=== PATIENT | female | born 1955 | race African-American/Black ===

== ENCOUNTER 2021-01-26 12:03 | Emergency (ER) | payer OTHER ==
[~2021-01-26] VITALS: Ht 162.6 cm; Wt 62.6 kg
[2021-01-26 12:41] LABS: HEMATOCRIT 41.5 % (37.0-47.0); WBC 4.7 thou/uL (4.0-11.0)
[2021-01-26 12:43] LABS: HEMOGLOBIN 13.6 gm/dL (12.0-15.0); MCH 28.8 pg (26.0-34.0); MCHC 32.7 g/dL (28.0-37.0); RBC 4.72 mil/uL (4.20-5.00); RDW 13.6 % (10.5-14.5)
[2021-01-26 12:47] LABS: ANION GAP 8 mmol/L (7-16); BUN 8 mg/dL (7-18); CALCIUM 9.4 mg/dL (8.5-10.1); CHLORIDE 105 mmol/L (98-107); CO2 27 mmol/L (21-32); GLUCOSE 95 mg/dL (74-106); POTASSIUM 3.6 mmol/L (3.5-5.1); SODIUM 140 mmol/L (136-145)
[2021-01-26 12:57] LABS: ALBUMIN 4.3 g/dL (3.4-5.0); SGOT 21 U/L (15-37); SGPT 31 U/L (30-65); TOTAL BILIRUBIN 0.7 mg/dL (0.2-1.0); TOTAL PROTEIN 7.5 g/dL (6.4-8.2); TROPONIN-I <0.06 ng/mL (<0.06)
[2021-01-26] MEDS ORDERED: VERAPAMIL HCL180 M2 PO (13:15)
[2021-01-26 13:26] VITALS: BP 133/60
[2021-01-26 13:34] LABS: ABSOLUTE NEUTROPHILS 2.5 thou/uL (1.4-8.2)
[2021-01-26 13:40] LABS: PLATELET COUNT 158 thou/uL (150-400)
--- NOTE | 2021-01-27 13:13 | EKG ---
[address] [address] ELECTROCARDIOGRAM REPORT Name: DENNEY,HEMALATHA R [id number] Admission: 01/26/21 Attend Phys: Discharge: 01/26/21 Date of : 59 Report #: [id number] [facility] ED Test Date: 2021-01-26 Test Time: 12:41:22 Pat Name: HEMALATHA DNENEY Department: Room: Gender: F Clam Treader: AUG[birth year] : 1955 Requested By: Chetan Bustamante Order Number: [id number] MD: Yahir Bhardwaj Measurements Intervals [place] Rate: 60 P: 56 W[place]: 117 QRS: 3 QRSD: 85 T: 46 QT: 402 QTc: 402 Interpretive Statements Sinus rhythm Borderline short [place] interval Compared to ECG 09/09/1995 13:49:00 ST (T wave) deviation now present Sinus arrhythmia no longer present Electronically Signed On 01-27-2021 13:12:54 SQL REPORT WRITER by Yahir Bhardwaj [email or web address] <ELECTRONICALLY SIGNED> By: Yahir Bhardwaj MD 01/27/21 1312 1241 1241 Yahir Bhardwaj MD /MARY GRACE
== END 2021-01-26 13:20 | disposition home or self-care (01) ==
LOC: ER 12:03
PROVIDERS: Emergency Medicine
DX: I10 Essential (primary) hypertension (principal); R51.9 Headache, unspecified; Z79.899 Other long term (current) drug therapy